=== PATIENT | female | born 1965 | race Caucasian/White ===

== ENCOUNTER → 2020-10-22 | Outpatient (CLI) | payer OTHER, MEDICARE ==
[~2020-10-22] MED LIST: DEXL60CA2 PO; ESTA2TAB PO; ESTR1TAB17 PO; LEVO150T PO; ZOLP10TA PO
--- NOTE | 2020-10-22 11:57 | KCIC ---
STUDY: MRI of the right shoulder without contrast INDICATION: Right shoulder adhesive capsulitis. Pain and limited range of motion. The patient reports a fall in 2005. COMPARISON: Right shoulder radiographs 02/21/2020. TECHNIQUE: Multiplanar MR imaging of the right shoulder performed without the use of intravenous or i ntra-articular contrast. FINDINGS: AC joint: Sequela of previous surgery likely consisting of subacromial decompression. Trace subacromi al subdeltoid bursal fluid without bursitis. Rotator cuff: No high-grade or full-thickness rotator cuff tear. Relatively mild supraspinatus and richards bscapularis tendinosis. Rotator cuff muscular bulk is within normal limits. Labrum: Global labral degeneration/degenerative tearing. Long head biceps tendon: Remains intact and normally located but with intra-articular tendinosis. Cartilage: Extensive full-thickness glenoid and humeral head chondral loss. Bones: Severe glenohumeral joint arthrosis with articular surface remodeling, osteophytosis and multi focal subchondral edema/cystic change. No acute fracture. Miscellaneous: A few mildly prominent but not pathologically enlarged axillary lymph nodes. Small michael unt of glenohumeral joint fluid with a few loose bodies such as at the axillary recess. No classic MR findings of adhesive capsulitis but assessment is limited by the degree of arthrosis. Partially imag ed intramuscular lipoma within the posterior/inferior deltoid with the imaged portion measuring appro ximately 2.8 x 1.9 x 2.5 cm. No thick internal septations. Localized muscular edema within the machine cutter ior deltoid, image 11 series 9, without fatty infiltration. Impression: 1. No high-grade or full-thickness rotator cuff tear. Maintained muscular bulk. 2. Diffusely degenerated/torn labrum in the setting of severe glenohumeral joint arthrosis. Large ar eas of full-thickness chondral loss with extensive subchondral cystic change and scattered edema. Not ing that adhesive capsulitis is a clinical diagnosis, no classic MR stigmata of this condition with a ssessment limited by the degree of arthrosis. 3. Intra-articular long head biceps tendinosis. 4. Deltoid intramuscular lipoma partially included in the [id number] without suspicious features that would warrant dedicated imaging at this time. Recommend clinical follow-up. 5. Localized deltoid muscular edema at its posterior aspect which is nonspecific but favored seconda ry to idiopathic subacute denervation. Electronically signed by: DEBBIE MAYFIELD MD (10/22/2020 11:55 AM) [id number]
== END ==
LOC: KCIC MRI 09:50
PROVIDERS: ATTEND Orthopaedic Surgery
DX: M19.011 Primary osteoarthritis, right shoulder (principal); M75.01 Adhesive capsulitis of right shoulder; D17.79 Benign lipomatous neoplasm of other sites; R60.0 Localized edema
CPT/HCPCS: 73221

== ENCOUNTER → 2020-11-18 | Outpatient (CLI) | payer OTHER, MEDICARE ==
[~2020-11-18] MED LIST changes: +IOHEXOL 300 MG/ML 100ML VIAL. IV ONE
--- NOTE | 2020-11-18 14:03 | KCIC ---
CTA CHEST History: Covid. Shortness of breath. Technique: CT of the chest was performed with intravenous contrast. PE protocol. Maximum intensity pr ojection coronal and sagittal reconstructions were performed. Exposure: One or more of the following individualized dose reduction techniques were utilized for thi s examination: 1. Automated exposure control 2. Adjustment of the mA and/or kV according to patient size 3. Use of iterative reconstruction technique. Comparison: None Findings: Chest: Degraded evaluation of the central pulmonary arteries due to contrast bolus timing. The distal pulmonary arteries are better opacified especially within the lung bases. No definite pulmonary embo sary distally within the lung bases. No aortic aneurysm or dissection. Mild ill-defined groundglass opacities bilaterally, right greater than left. No pleural effusion. No pneumothorax. Linear lingular and right lower lobe atelectasis. 4 mm right middle lobe pulmonary nodule (series 5 image 65). Upper abdomen: Right renal cyst measures 2 cm. Prior cholecystectomy. Bones: No pathologic osseous lesions. Impression: 1. Essentially nondiagnostic evaluation of the pulmonary arteries due to contrast bolus timing. No d efinite distal pulmonary embolus within the lung bases, as described. If persistent clinical concern, recommend repeat imaging or VQ scan can further evaluate. 2. Mild bilateral groundglass opacities, may represent infectious or inflammatory process including viral pneumonia. Comparison with prior imaging studies would be of benefit. 3. Small right middle lobe pulmonary nodule. Recommend one-year follow-up if high risk. Electronically signed by: Adrián Haney DO (11/18/2020 2:01 PM) [facility]
== END ==
LOC: KCIC CT 13:02
PROVIDERS: ATTEND Family Medicine
DX: R91.1 Solitary pulmonary nodule (principal); R06.02 Shortness of breath; R79.1 Abnormal coagulation profile; Z86.16 Personal history of COVID-19; Z90.49 Acquired absence of other specified parts of digestive tract
CPT/HCPCS: 71275; Q9967

== ENCOUNTER → 2020-11-27 | Day surgery (SDC) | payer OTHER, MEDICARE ==
[~2020-11-27] VITALS: Ht 170.2 cm; Wt 120.2 kg
[~2020-11-27] MED LIST changes: +BREO ELLIPTA 11 EACH IH; +BUPIVACAINE MPF 0.25% 10 ML VIAL. INT ART ONE; +BUPIVACAINE-EPI 0.25% 30 ML VIAL KIT. ONE; +CHOL2400 MC; +COLE1TAB2 PO; +CYAN50008 PO; +CYCL10TA2 PO; +FLUO10CA13 PO; +HYDR-2759 PO; +HYDROcodone/APAP 5/325MG 1 TAB TABLET ONE; +HYDROcodone/APAP 5/325MG 1 TAB TABLET PO ONE; +HYDROmorphone 2 MG/ML VIAL IVP PRN; -IOHEXOL 300 MG/ML 100ML VIAL. IV ONE; +IV RINGERS,LACTATED 1000ML 1,000 ML IV SCH; +LEVO200T PO; +MELO15TA6 PO; +MORPHINE SULFATE 2 MG/ML VIAL. IVP PRN; +PROCHLORPERAZINE 10 MG/2 ML VIAL. IVP PRN; +PROPOFOL 10 MG/ML (20ML) VIAL. IV ONE; +VENTOLIN HFA18 GM INH; +fentaNYL PF VIAL 100 MCG/2 ML VIAL IVP PRN; +fentaNYL PF VIAL 100 MCG/2 ML VIAL ONE; +methylPREDNISolone ACETATE 80 MG/ML VIAL. IM ONE
--- NOTE | 2020-11-27 08:18 | DISCH ---
DISCHARGE INSTRUCTIONS Condition on Discharge Condition on Discharge: Stable Activity After Discharge Activity Instructions for Disc: Activity as tolerated Weight Bearing Status after Di: As tolerated Diet after Discharge Diet after Discharge: Regular Wound Incision Care Wound/Incision Care: No wound care needed Community/Resources/Services Services at Discharge: PT EVALUATE & TREAT (Immediate active and passive range of motion strengthening as tolerated no restrictions whatsoever status post shoulder manipulation) Contacting the DRRaymond after DC Call your doctor for: Concerns you may have Follow-Up Follow up with: Dr. Cody or Kirt 10 days MARIA M CODY MD Nov 27, 2020 08:18
[2020-11-27 08:52] VITALS: BP 126/52
--- NOTE | 2020-11-27 09:24 | PDOC4 ---
Operative Note Operative Note Date of surgery: 11/27/2020 Preoperative diagnosis: Adhesive capsulitis right shoulder Postoperative diagnosis: Same Operative procedure: Manipulation of right shoulder under anesthesia and in jection glenohumeral joint Surgeon: Glo Anesthesia: Deep sedation with propofol Complications: None Operative indications: Please see my orthopedic clinic note for detailed operative indications and note that we had covered the possibility of manip ulation as she is not progressing with her motion with therapy we talked about the possibility of restoring her motion and continuing with therapy to maintain the regained loss of motion and the possibility of continued stiffness fracture instability medical or other anesthetic complications among others she agrees to proceed with surgical evaluation and treatment. Operative text: Patient was identified procedure verified and after adequate amounts of propofol sedation were administered the right arm was examined for shoulder motion and noted to be lacking terminal elevation abduction and external rotation as well as terminal internal rotation which was restored to normal following manipulation with audible and palpable release of tissue. No instability was noted postoperatively and after sterile prep was obtained a total of 1 cc 80 mg/cc Depo-Medrol with 3 cc quarter percent Marcaine with epinephrine were injected into the glenohumeral joint from an anterior approach. She tolerated the procedure well and I gave strict instructions for no immobilization immediate range of motion and physical therapy as soon as she could arrange it at the latest on Monday to work aggressively on her range of motion and strength both formally in physical therapy and at home MARIA M WASSERMAN MD Nov 27, 2020 09:24
== END | disposition home or self-care (01) ==
LOC: SURG 06:55
PROVIDERS: ATTEND Orthopaedic Surgery
DX: M75.01 Adhesive capsulitis of right shoulder (principal); M19.011 Primary osteoarthritis, right shoulder; E66.9 Obesity, unspecified; K21.9 Gastro-esophageal reflux disease without esophagitis; E03.9 Hypothyroidism, unspecified; Z79.899 Other long term (current) drug therapy; Z98.890 Other specified postprocedural states; Z90.710 Acquired absence of both cervix and uterus; Z88.8 Allergy status to other drugs, medicaments and biological substances
CPT/HCPCS: 20610; 23700; J1040; J2704; J3010

== ENCOUNTER → 2021-07-01 | Outpatient (CLI) | payer OTHER, MEDICARE ==
[~2021-07-01] MED LIST changes: -BUPIVACAINE MPF 0.25% 10 ML VIAL. INT ART ONE; -BUPIVACAINE-EPI 0.25% 30 ML VIAL KIT. ONE; -CYAN50008 PO; +CYAN50009 PO; -HYDROcodone/APAP 5/325MG 1 TAB TABLET ONE; -HYDROcodone/APAP 5/325MG 1 TAB TABLET PO ONE; -HYDROmorphone 2 MG/ML VIAL IVP PRN; -IV RINGERS,LACTATED 1000ML 1,000 ML IV SCH; -MORPHINE SULFATE 2 MG/ML VIAL. IVP PRN; -PROCHLORPERAZINE 10 MG/2 ML VIAL. IVP PRN; -PROPOFOL 10 MG/ML (20ML) VIAL. IV ONE; -fentaNYL PF VIAL 100 MCG/2 ML VIAL IVP PRN; -fentaNYL PF VIAL 100 MCG/2 ML VIAL ONE; -methylPREDNISolone ACETATE 80 MG/ML VIAL. IM ONE
--- NOTE | 2021-07-01 17:18 | KCIC ---
Examination: MRI of the right shoulder without contrast HISTORY: History of right shoulder pain COMPARISON: None available FINDINGS: The long head of the biceps tendon within the bicipital groove. The attachment of the long head the b iceps tendon to the superior labral anchor grossly appears intact. The attachment of the subscapulari s tendon grossly appears intact. Moderate increased signal identified in the subscapularis, supraspin atus, infraspinatus tendon likely tendinosis. Severe joint space loss identified in the glenohumeral joint likely degenerative changes with large osteophyte formation. There is moderate increased T2 sig nal/edema identified in the scapula and the glenoid likely trabecular edema. Complete cartilage loss glenohumeral joint. The labrum is attenuated likely degenerative changes. The acromion is type II. There is obscuration of fat in the rotator interval. IMPRESSION: 1. Severe degenerative changes in the glenohumeral joint. 2. Rotator cuff tendinosis 3. Moderate trabecular edema in the scapula deep to the glenoid. 4. Obscuration of fat in the rotator interval likely adhesive capsulitis. Electronically signed by: Jackson Badillo MD (07/01/2021 5:15 PM) [id number]
== END ==
LOC: KCIC MRI 13:06
PROVIDERS: ATTEND Internal Medicine Rheumatology
DX: M19.011 Primary osteoarthritis, right shoulder (principal); M75.21 Bicipital tendinitis, right shoulder; R60.0 Localized edema; M25.711 Osteophyte, right shoulder; M75.01 Adhesive capsulitis of right shoulder; M25.811 Other specified joint disorders, right shoulder
CPT/HCPCS: 73221

== ENCOUNTER → 2021-12-21 | Outpatient (CLI) | payer MEDICARE, OTHER ==
[~2021-12-21] MED LIST changes: +CYCL10TA19 PO; -CYCL10TA2 PO
--- NOTE | 2021-12-21 15:23 | KCIC ---
EXAM: CT CHEST WITHOUT CONTRAST HISTORY: Lung nodule follow-up. COMPARISON: CT chest 11/18/2020 TECHNIQUE: Helical CT of the chest performed without contrast. Coronal and sagittal reformats were o btained. One or more of the following individualized dose reduction techniques were utilized for this examinat ion: 1. Automated exposure control 2. Adjustment of the mA and/or kV according to patient size 3. Use of iterative reconstruction technique. FINDINGS: Thyroid gland and thoracic inlet: Normal. Heart and great vessels: The heart is normal in size. No coronary artery calcifications. The thoracic aorta is normal in caliber. Mediastinum and jazmin: No mediastinal or hilar lymphadenopathy. Small hiatal hernia. Lungs and pleura: A pulmonary nodule in the right middle lobe has decreased, now 2 mm. There are no n ew pulmonary nodules. Mild scattered ground glass opacities have resolved. Minimal scarring or atelec tasis in the lingula is unchanged. Chest wall and axillae: No axillary lymphadenopathy. Chest wall is unremarkable. Upper abdomen: There are surgical changes of cholecystectomy. Bones: No acute osseous abnormalities. There is thoracic degenerative disc disease. IMPRESSION: 1. The pulmonary nodule in the right middle lobe has decreased in size, now 2 mm. No new pulmonary no dules. No further follow-up is indicated. 2. Small hiatal hernia. Electronically signed by: Angelina Andres MD (12/21/2021 3:20 PM) [id number]
== END ==
LOC: KCIC CT 09:05
PROVIDERS: ATTEND Nurse Practitioner Family
DX: R91.1 Solitary pulmonary nodule (principal); K44.9 Diaphragmatic hernia without obstruction or gangrene; M47.814 Spondylosis without myelopathy or radiculopathy, thoracic region; Z90.49 Acquired absence of other specified parts of digestive tract
CPT/HCPCS: 71250